=== PATIENT | male | born 1950 | race Caucasian/White ===

== ENCOUNTER → 2017-09-29 | Outpatient (CLI) | payer MEDICARE, OTHER ==
[~2017-09-29] MED LIST: CONTRAST GIVEN MC
[2017-09-29 08:42] LABS: ADD MAN DIFF? NO
[2017-09-29 08:50] LABS: BASO % 1 % (0-3); EOS # 0.1 x10^3/uL (0.0-0.7); EOS % 2 % (0-3); HEMATOCRIT 43.6 % (39.0-53.0); HEMOGLOBIN 15.4 g/dL (13.0-17.5); LYMPH # 1.8 x10^3/uL (1.0-4.8); LYMPH % 36 % (24-48); MEAN CORPUSCULAR HEMOGLOBIN 34 pg (25-35); MEAN CORPUSCULAR HGB CONC 35 g/dL (31-37); MEAN CORPUSCULAR VOLUME 96 fL (79-100); MONO # 0.6 x10^3/uL (0.0-1.1); MONO % 12 % (0-9); NEUT # 2.5 x10^3uL (1.8-7.7); NEUT % 49 % (31-73); PLATELET COUNT 220 x10^3/uL (140-400); RED BLOOD COUNT 4.53 x10^6/uL (4.30-5.70); RED CELL DISTRIBUTION WIDTH 13.9 % (11.5-14.5)
[2017-09-29 08:52] LABS: BILIRUBIN,URINE NEGATIVE (NEG); CLARITY,URINE CLEAR; COLOR,URINE YELLOW; GLUCOSE,URINE NEGATIVE (NEG); NITRITE,URINE NEGATIVE (NEG); PROTEIN,URINE NEGATIVE (NEG-TRACE); UROBILINOGEN,URINE 0.2 mg/dL (0.2 mg/dL)
[2017-09-29] MEDS: IOHEXOL 300 MG/ML 100ML VIAL. IV (09:15)
[2017-09-29 09:20] LABS: ALBUMIN/GLOBULIN RATIO 1.1 (1.0-1.7); ALK PHOS 65 U/L (46-116); ALT (SGPT) 53 U/L (16-63); ANION GAP 9 (6-14); AST (SGOT) 23 U/L (15-37); BLOOD UREA NITROGEN 21 mg/dL (8-26); BUN/CREATININE RATIO 21 (6-20); CALCIUM 9.5 mg/dL (8.5-10.1); CARBON DIOXIDE 29 mmol/L (21-32); CHLORIDE 105 mmol/L (98-107); GFR 74.1; GLUCOSE 105 mg/dL (70-99); POTASSIUM 4.1 mmol/L (3.5-5.1); SODIUM 143 mmol/L (136-145); TOTAL BILIRUBIN 0.8 mg/dL (0.2-1.0); TOTAL PROTEIN 7.6 g/dL (6.4-8.2)
[2017-09-29 09:28] LABS: SQUAMOUS EPITHELIAL CELL,UR OCC /LPF
[2017-09-29 09:29] LABS: BACTERIA,URINE FEW /HPF (0-FEW)
[2017-09-29 09:32] LABS: PROSTATE SPECIFIC ANTIGEN 7.08 ng/mL (0.00-4.00)
== END | disposition home or self-care (01) ==
LOC: CT 08:24
DX: Z12.5 Encounter for screening for malignant neoplasm of prostate (principal); N40.0 Benign prostatic hyperplasia without lower urinary tract symptoms
CPT/HCPCS: 36415; 74178; 80053; 81001; 85025; 87086; G0103; Q9967

== ENCOUNTER → 2018-03-16 | Outpatient (CLI) | payer MEDICARE, OTHER ==
[2017-01-29 11:25] VITALS: BP 115/79
[2018-03-16 12:13] LABS: CHOLESTEROL/HDL RATIO 2.4
[2018-03-18 07:40] LABS: FREE PSA/PSA RATIO 28.5 % (.); PSA FREE 1.57 ng/mL; PSA TOTAL 5.5 ng/mL (0.0-4.0)
== END | disposition home or self-care (01) ==
LOC: LAB 11:14
PROVIDERS: ATTEND Specialist
DX: R97.20 Elevated prostate specific antigen [PSA] (principal); Z82.49 Family history of ischemic heart disease and other diseases of the circulatory system
CPT/HCPCS: 36415; 80061; 84153; 84154

== ENCOUNTER → 2019-03-07 | Outpatient (CLI) | payer MEDICARE, OTHER ==
[2017-01-29 11:25] VITALS: BP 115/79
[2019-03-09 13:15] LABS: FREE PSA/PSA RATIO 30.2 % (.); PSA FREE 1.96 ng/mL; PSA TOTAL 6.5 ng/mL (0.0-4.0)
== END | disposition home or self-care (01) ==
LOC: LAB 12:08
PROVIDERS: ATTEND Specialist
DX: R97.20 Elevated prostate specific antigen [PSA] (principal)
CPT/HCPCS: 36415; 84153; 84154

== ENCOUNTER → 2020-02-22 | Outpatient (CLI) | payer MEDICARE, OTHER ==
[2017-01-29 11:25] VITALS: BP 115/79
[2020-02-25 03:09] LABS: FREE PSA/PSA RATIO 23.6 % (.); PSA FREE 1.91 ng/mL; PSA TOTAL 8.1 ng/mL (0.0-4.0)
== END ==
LOC: LAB 11:08
PROVIDERS: ATTEND Specialist
DX: R97.20 Elevated prostate specific antigen [PSA] (principal)
CPT/HCPCS: 84153; 84154

== ENCOUNTER → 2020-09-11 | Outpatient (CLI) | payer MEDICARE, OTHER ==
[2017-01-29 11:25] VITALS: BP 115/79
== END ==
LOC: LAB 11:56
PROVIDERS: ATTEND Specialist
DX: R97.20 Elevated prostate specific antigen [PSA] (principal)
CPT/HCPCS: 84153; 84154

== ENCOUNTER → 2020-09-21 | Outpatient (CLI) | payer MEDICARE, OTHER ==
[2017-01-29 11:25] VITALS: BP 115/79
== END ==
LOC: LAB 11:01
PROVIDERS: ATTEND Radiology Vascular & Interventional Radiology
DX: R97.20 Elevated prostate specific antigen [PSA] (principal)
CPT/HCPCS: 36415; 84153; 84154

== ENCOUNTER → 2021-03-14 | Outpatient (CLI) | payer MEDICARE, OTHER ==
[2017-01-29 11:25] VITALS: BP 115/79
[2021-03-22 15:16] LABS: FREE PSA/PSA RATIO 33.2 % (.); PSA FREE 2.29 ng/mL; PSA TOTAL 6.9 ng/mL (0.0-4.0)
== END ==
LOC: LAB 10:40
PROVIDERS: ATTEND Specialist
DX: R97.20 Elevated prostate specific antigen [PSA] (principal)
CPT/HCPCS: 36415; 84153; 84154